=== PATIENT | female | born 1950 | race Caucasian/White ===

== ENCOUNTER 2019-09-11 17:09 | Emergency (ER) | payer MEDICARE ==
[2019-09-11] MEDS ORDERED: NORMAL SALINE 1000 ML 1,000 ML IV ONE (17:20)
--- NOTE | 2019-09-11 17:28 | ER Document Report ---
ED Syncope and Near Syncope - General Chief Complaint: Near Syncope Stated Complaint: WEAKENESS Time Seen by Provider: 09/11/19 17:18 Mode of Arrival: Medic Information source: Patient - HPI Notes: Patient arrives by EMS. Patient states that she was at home at the kitchen sink when she felt like she was going to pass out. She was helped to a chair by her daughter. EMS was called. EMS states they found the patient diaphoretic and she had another near syncopal episode with them. She states she has had this before but does not know what was wrong. She states for the last several days she has been feeling normal. She has no known COVID virus exposures. She has had no cough cold or congestion. No nausea vomiting or diarrhea. Patient states that she has not changed her medications recently. She states that she currently feels back to normal. When she had the episode she felt dizzy. This dizziness radiated throughout her body. It was better when she rested and worse when she stood up. It was intermittent. It was moderate to severe in intensity. Past Medical History - General Information source: Patient - Social History Smoking Status: Never Smoker Frequency of alcohol use: None Drug Abuse: None Family History: Reviewed & Not Pertinent Review of Systems - Review of Systems Constitutional: Malaise, Weakness. denies: Chills, Fever Cardiovascular: denies: Chest pain, Palpitations Respiratory: denies: Cough, Short of breath -: Yes All other systems reviewed and negative Physical Exam - Vital signs Vitals: Temp 97.2 F 09/11/19 17:09 Interpretation: Normal - General General appearance: Appears well, Alert - HEENT Head: Normocephalic, Atraumatic Eyes: Normal Pupils: PERRL - Respiratory Respiratory status: No respiratory distress Chest status: Nontender Breath sounds: Normal Chest palpation: Normal - Cardiovascular Rhythm: Regular Heart sounds: Normal auscultation Murmur: No - Abdominal Inspection: Normal Distension: No distension Bowel sounds: Normal Tenderness: Nontender Organomegaly: No organomegaly - Back Back: Normal, Nontender - Extremities General upper extremity: Normal inspection, Nontender, Normal color, Normal ROM, Normal temperature General lower extremity: Normal inspection, Nontender, Normal color, Normal ROM, Normal temperature, Normal weight bearing. No: Hien's sign - Neurological Neuro grossly intact: Yes Cognition: Normal Orientation: AAOx4 Watson Coma Scale Eye Opening: Spontaneous Beatrice Coma Scale Verbal: Oriented Beatrice Coma Scale Motor: Obeys Commands Watson Coma Scale Total: 15 Speech: Normal Motor strength normal: LUE, RUE, LLE, RLE Sensory: Normal - Psychological Associated symptoms: Normal affect, Normal mood - Skin Skin Temperature: Warm Skin Moisture: Dry Skin Color: Normal Course - Re-evaluation Re-evalutation: 09/11/19 19:03 Patient presented after a near syncopal episode. Patient has no evidence of cardiac ischemia or arrhythmias here. She is mildly anemic however there is no previous hemoglobin to compare this to. She has no active bleeding and is unaware of any bloody or tarry stools. She did appear slightly dehydrated and now feels better after fluids. She was able to ambulate about the emergency department without problem and unassisted. She has no recent infectious processes. She has no significant risk factors for pulmonary embolism. It seems that this is most likely a medication issue and I have asked her to discuss her blood pressure medications with her primary care physician. - Vital Signs Vital signs: Temp Pulse Resp BP Pulse Ox 97.2 F 79 129/82 H 09/11/19 17:09 09/11/19 18:11 09/11/19 18:11 - Laboratory Result Diagrams: 09/11/19 17:10 09/11/19 17:10 Laboratory results interpreted by in: 09/11/19 09/11/19 09/11/19 17:10 17:10 18:15 RBC 3.24 L Hgb 9.8 L Hct 29.1 L RDW 16.8 H BUN 23 H Est GFR ( Amer) 53 L Est GFR (MDRD) Non-Af 44 L Glucose 118 H Albumin 3.4 L Ur Leukocyte Esterase TRACE H - EKG Interpretation by Pa EKG shows normal: Sinus rhythm Rate: Normal - 71 Rhythm: NSR Heart block present: 1st Degree Discharge - Discharge Clinical Impression: Near syncope Condition: Stable Disposition: HOME, SELF-CARE Instructions: Near Syncopal Episode ([facility]) Additional Instructions: Please go see your primary doctor tomorrow and discuss your blood pressure medications.
[2019-09-11 17:30] LABS: ABSOLUTE EOSINOPHILS # (AUTO) 0.1 10^3/uL (0.0-0.6); ABSOLUTE LYMPHOCYTES (AUTO) 1.7 10^3/uL (0.5-4.7); ABSOLUTE MONOCYTES (AUTO) 0.4 10^3/uL (0.1-1.4); ABSOLUTE NEUT (AUTO) 1.8 10^3/uL (1.7-8.2); EOSINOPHILS % (AUTO) 2.7 % (0-6); HEMATOCRIT 29.1 % (36.0-47.0); HEMOGLOBIN 9.8 g/dL (12.0-15.5); LYMPHOCYTES % (AUTO) 41.1 % (13-45); MEAN CORPUSCULAR HEMOGLOBIN 30.3 pg (27.0-33.4); MEAN CORPUSCULAR HGB CONC 33.7 g/dL (32.0-36.0); MEAN CORPUSCULAR VOLUME 90 fl (80-97); MONOCYTES % (AUTO) 10.7 % (3-13); PLATELET COUNT 227 10^3/uL (150-450); RED BLOOD COUNT 3.24 10^6/uL (3.72-5.28); RED CELL DISTRIBUTION WIDTH 16.8 % (11.5-14.0); SEGMENTED NEUTROPHILS % (AUTO) 44.5 % (42-78); TOTAL CELLS COUNTED % (AUTO) 100 %; WHITE BLOOD COUNT 4.1 10^3/uL (4.0-10.5)
[2019-09-11 18:18] LABS: ALBUMIN 3.4 g/dL (3.5-5.0); ALKALINE PHOSPHATASE 51 U/L (38-126); ANION GAP 8 (5-19); ASPARTATE AMINO TRANSFERASE 16 U/L (14-36); BILIRUBIN,TOTAL 0.3 mg/dL (0.2-1.3); BLOOD UREA NITROGEN 23 mg/dL (7-20); CALCIUM 8.9 mg/dL (8.4-10.2); CARBON DIOXIDE 24 mmol/L (22-30); CHLORIDE 106 mmol/L (98-107); GLUCOSE 118 mg/dL (75-110); POTASSIUM 4.2 mmol/L (3.6-5.0); TOTAL PROTEIN 6.4 g/dL (6.3-8.2)
[2019-09-11 18:47] LABS: APPEARANCE,URINE CLEAR; BILIRUBIN,URINE NEGATIVE (NEGATIVE); COLOR,URINE YELLOW; GLUCOSE, URINE NEGATIVE (NEGATIVE); KETONES,URINE NEGATIVE (NEGATIVE); LEUKOCYTE ESTERASE,URINE TRACE (NEGATIVE); NITRITE,URINE NEGATIVE (NEGATIVE); PROTEIN,URINE NEGATIVE (NEGATIVE); URINE SPECIFIC GRAVITY 1.015; UROBILINOGEN,URINE NEGATIVE mg/dL (<2.0)
[2019-09-11 19:34] VITALS: BP 145/84
--- NOTE | 2019-09-12 07:45 | EKG REPORT ---
SEVERITY:- ABNORMAL ECG - SINUS RHYTHM FIRST DEGREE AV BLOCK LEFT ANTERIOR FASCICULAR BLOCK BORDERLINE T ABNORMALITIES, ANT-LAT LEADS : Confirmed by: Elsie Caro MD 12-Sep-2019 07:44:15
== END 2019-09-11 19:36 | disposition home or self-care (01) ==
LOC: ER 17:09
DX: R55 Syncope and collapse (principal); R53.1 Weakness
CPT/HCPCS: 36415; 80053; 81001; 84484; 85025; 93005; 93010; 99284